=== PATIENT | male | born 1955 | race Caucasian/White ===

== ENCOUNTER 2021-10-16 14:01 | Inpatient (IN) | payer MEDICARE, MEDICAID, OTHER ==
[~2021-10-16] VITALS: Ht 175.3 cm; Wt 81.6 kg
[2021-10-16 16:02] LABS: CHLORIDE 93 mEq/L (98-107)
[2021-10-16 16:03] LABS: BASOPHILS % 0.2 % (0.0-2.0); HEMATOCRIT. 43.3 % (42.0-52.0); HEMOGLOBIN. 14.5 g/dL (14.0-18.0); LYMPHOCYTES % 9.5 % (20.0-50.0); MEAN CORPUSCULAR HEMOGLOBIN 32.6 pg (28.0-32.0); MEAN CORPUSCULAR VOLUME 97.3 fL (80.0-94.0); MEAN PLATELET VOLUME 9.6 fl (7.4-10.4); MONOCYTES % 8.1 % (2.0-8.0); NEUTROPHILS % 82.2 % (40.0-76.0); PLATELET 200 x1000/uL (130-400); RED BLOOD CELL COUNT 4.45 mill/uL (4.7-6.1); RED CELL DISTRIBUTION WIDTH 17.2 % (11.6-14.6)
[2021-10-16] MEDS ORDERED: FUROSEMIDE 40MG/4ML VIAL IV ONE (17:00)
[2021-10-16] MEDS ORDERED: ASPIRIN 81MG TABLET PO ONE (17:00)
[2021-10-17] MEDS ORDERED: FUROSEMIDE 40MG/4ML VIAL IV NR (01:30)
[2021-10-17] MEDS ORDERED: ASPIRIN 81MG TABLET PO NR (01:45)
[2021-10-17 02:52] VITALS: BP 153/102
[2021-10-17 08:00] VITALS: BP 150/101
[2021-10-17] MEDS ORDERED: FUROSEMIDE 40MG/4ML VIAL IVP SCH ×2 (09:00→17:00)
[2021-10-17] MEDS: CARVEDILOL 6.25 MG TABLET PO SCH ×2 (09:17→21:15)
[2021-10-17] MEDS: ENOXAPARIN 40MG/0.4ML SYR SUBCUT SCH (09:17)
[2021-10-17] MEDS: LISINOPRIL 20MG TABLET PO SCH (09:17)
[2021-10-17 12:00] VITALS: BP 96/66
[2021-10-17 16:00] VITALS: BP 118/80
[2021-10-17] MEDS: FUROSEMIDE 40MG/4ML VIAL IVP SCH (17:26)
[2021-10-17 17:51] LABS: *AMPHETAMINES SCREEN URINE NEGATIVE (NEGATIVE)
[2021-10-17 17:52] LABS: *BARBITURATES SCREEN URINE NEGATIVE (NEGATIVE); *BENZODIAZEPINES SCREEN URINE NEGATIVE (NEGATIVE); *COCAINE SCREEN URINE NEGATIVE (NEGATIVE); METHADONE URINE SCREEN NEGATIVE (NEGATIVE); OPIATES URINE SCREEN NEGATIVE (NEGATIVE); PHENCYCLIDINE URINE SCREEN NEGATIVE (NEGATIVE)
[2021-10-17 17:53] LABS: CANNABINOID URINE SCREEN NEGATIVE (NEGATIVE)
[2021-10-17 20:00] VITALS: BP 134/88
[2021-10-18] VITALS: BP 108/69
[2021-10-18 04:00] VITALS: BP 110/62
[2021-10-18] MEDS: FUROSEMIDE 40MG/4ML VIAL IVP SCH ×2 (06:55→18:34)
[2021-10-18 07:28] LABS: BASOPHILS % 0.6 % (0.0-2.0); EOSINOPHILS % 0.3 % (0.0-5.0); HEMATOCRIT. 39.3 % (42.0-52.0); HEMOGLOBIN. 13.1 g/dL (14.0-18.0); LYMPHOCYTES % 7.8 % (20.0-50.0); MEAN CORPUSCULAR HEMOGLOBIN 32.1 pg (28.0-32.0); MEAN CORPUSCULAR VOLUME 96.2 fL (80.0-94.0); MEAN PLATELET VOLUME 9.9 fl (7.4-10.4); MONOCYTES % 7.1 % (2.0-8.0); NEUTROPHILS % 84.2 % (40.0-76.0); PLATELET 166 x1000/uL (130-400); RED BLOOD CELL COUNT 4.09 mill/uL (4.7-6.1); RED CELL DISTRIBUTION WIDTH 17.5 % (11.6-14.6)
[2021-10-18 08:00] VITALS: BP 106/67
[2021-10-18] MEDS: LISINOPRIL 20MG TABLET PO SCH (08:42)
[2021-10-18] MEDS: ENOXAPARIN 40MG/0.4ML SYR SUBCUT SCH (08:42)
[2021-10-18] MEDS: CARVEDILOL 6.25 MG TABLET PO SCH ×2 (08:42→21:57)
[2021-10-18] MEDS ORDERED: POTASSIUM CHLORIDE INJ 40 MEQ in DEXT 5% WATER 500 ML IV ONE (10:00)
[2021-10-18] MEDS ORDERED: POTASSIUM CHLORIDE 20MEQ TABLET SR PO NR (10:30)
[2021-10-18 12:00] VITALS: BP 113/58
[2021-10-18] MEDS: KCL 20MEQ/100ML PREMIX 100 ML IV SCH ×2 (12:27→15:59)
[2021-10-18] MEDS ORDERED: SPIRONOLACTONE 25MG TABLET PO SCH (13:45)
[2021-10-18 16:00] VITALS: BP 99/72
== END 2021-10-19 06:45 | disposition left against medical advice (07) | DRG 280 ==
LOC: ER 14:20 → 7EST 17:44 → EDBEDREQTM 18:44 → EDBEDREQ 18:44 → ENRESERV 10-17 00:11 → 5WST 10-18 15:58
PROVIDERS: ADMIT Internal Medicine; ATTEND Internal Medicine
DX: I21.4 Non-ST elevation (NSTEMI) myocardial infarction (principal); I50.23 Acute on chronic systolic (congestive) heart failure; N17.0 Acute kidney failure with tubular necrosis; N17.9 Acute kidney failure, unspecified; E44.0 Moderate protein-calorie malnutrition; E87.1 Hypo-osmolality and hyponatremia; I11.0 Hypertensive heart disease with heart failure; I16.0 Hypertensive urgency; E78.00 Pure hypercholesterolemia, unspecified; E78.5 Hyperlipidemia, unspecified; F17.210 Nicotine dependence, cigarettes, uncomplicated; Z20.822 Contact with and (suspected) exposure to COVID-19; R74.01 Elevation of levels of liver transaminase levels; E87.8 Other disorders of electrolyte and fluid balance, not elsewhere classified; Z91.14 Patient's other noncompliance with medication regimen; I25.2 Old myocardial infarction; Z68.26 Body mass index [BMI] 26.0-26.9, adult
CPT/HCPCS: 36415; 71045; 76700; 80048; 80053; 80305; 83880; 84484; 85025; 87426; 93005; 93306; 99285; J1650; J1940; J3480; J7040

== ENCOUNTER 2021-12-11 11:51 | Inpatient (IN) | payer MEDICARE, OTHER ==
[~2021-12-11] VITALS: Ht 170.2 cm; Wt 64.9 kg
[2021-12-11 13:05] LABS: BASOPHILS % 0.2 % (0.0-2.0); HEMATOCRIT. 42.7 % (42.0-52.0); HEMOGLOBIN. 14.8 g/dL (14.0-18.0); LYMPHOCYTES % 8.2 % (20.0-50.0); MEAN CORPUSCULAR HEMOGLOBIN 33.4 pg (28.0-32.0); MEAN CORPUSCULAR VOLUME 96.2 fL (80.0-94.0); MEAN PLATELET VOLUME 9.7 fl (7.4-10.4); MONOCYTES % 7.7 % (2.0-8.0); NEUTROPHILS % 83.9 % (40.0-76.0); PLATELET 184 x1000/uL (130-400); RED BLOOD CELL COUNT 4.44 mill/uL (4.7-6.1); RED CELL DISTRIBUTION WIDTH 17.5 % (11.6-14.6)
[2021-12-11] MEDS ORDERED: FUROSEMIDE 40MG/4ML VIAL IVP ONE (14:15)
[2021-12-11 21:40] VITALS: BP 145/102
[2021-12-11] MEDS: SODIUM CHLORIDE 0.9% INJ 3ML FLUSH IVF SCH (22:00)
[2021-12-11] MEDS ORDERED: MAGNESIUM/ALUMINUM HYDROXIDE/SIMETHICONE 30ML UDC PO PRN (22:00)
[2021-12-11] MEDS ORDERED: DIPHENHYDRAMINE 50MG/ML VIAL IV PRN (22:00)
[2021-12-11] MEDS ORDERED: ZOLPIDEM TARTRATE 5MG TABLET PO PRN (22:00)
[2021-12-11] MEDS ORDERED: HYDRALAZINE 20MG/ML VIAL IV PRN (22:00)
[2021-12-11] MEDS ORDERED: GUAIFENESIN 200MG/10ML SUGAR FREE UDC PO PRN (22:00)
[2021-12-11] MEDS ORDERED: ONDANSETRON HCL 4MG/2ML INJ IV PRN (22:00)
[2021-12-11] MEDS ORDERED: ACETAMINOPHEN 325MG TABLET PO PRN ×2 (22:00)
[2021-12-11] MEDS ORDERED: CLONIDINE 0.1MG TABLET PO PRN (22:00)
[2021-12-12] VITALS: BP 137/96
[2021-12-12 04:00] VITALS: BP 132/99
[2021-12-12 06:36] LABS: BASOPHILS % 0.3 % (0.0-2.0); HEMATOCRIT. 45.2 % (42.0-52.0); HEMOGLOBIN. 15.3 g/dL (14.0-18.0); LYMPHOCYTES % 9.3 % (20.0-50.0); MEAN CORPUSCULAR HEMOGLOBIN 32.7 pg (28.0-32.0); MEAN CORPUSCULAR VOLUME 96.8 fL (80.0-94.0); MEAN PLATELET VOLUME 9.9 fl (7.4-10.4); MONOCYTES % 8.9 % (2.0-8.0); NEUTROPHILS % 81.5 % (40.0-76.0); PLATELET 182 x1000/uL (130-400); RED BLOOD CELL COUNT 4.67 mill/uL (4.7-6.1); RED CELL DISTRIBUTION WIDTH 17.7 % (11.6-14.6)
[2021-12-12 06:43] LABS: PHOSPHORUS 3.6 mg/dL (2.5-4.9)
[2021-12-12] MEDS: SODIUM CHLORIDE 0.9% INJ 3ML FLUSH IVF SCH ×3 (06:48→21:07)
[2021-12-12 08:00] VITALS: BP 138/78
[2021-12-12] MEDS: FUROSEMIDE 40MG/4ML VIAL IVP SCH ×2 (10:56→21:07)
[2021-12-12] MEDS: SPIRONOLACTONE 25MG TABLET PO SCH (10:56)
[2021-12-12] MEDS: LISINOPRIL 10MG TABLET PO SCH ×2 (10:57→21:07)
[2021-12-12] MEDS: CARVEDILOL 6.25 MG TABLET PO SCH ×2 (10:57→21:07)
[2021-12-12] MEDS: ENOXAPARIN 40MG/0.4ML SYR SUBCUT SCH (10:58)
[2021-12-12 12:00] VITALS: BP 129/79
[2021-12-12 16:00] VITALS: BP 132/75
[2021-12-12] MEDS ORDERED: POTASSIUM CHLORIDE 10MEQ TABLET SR PO NR (16:30)
[2021-12-12] MEDS ORDERED: FUROSEMIDE 40MG/4ML VIAL IVP NR (16:30)
[2021-12-12 20:00] VITALS: BP 132/86
[2021-12-13] VITALS (7 sets, daily range): BP systolic 97–125; BP diastolic 65–75
[2021-12-13] MEDS: SODIUM CHLORIDE 0.9% INJ 3ML FLUSH IVF SCH ×3 (05:06→21:33)
[2021-12-13] MEDS: SPIRONOLACTONE 25MG TABLET PO SCH (09:00)
[2021-12-13] MEDS: LISINOPRIL 10MG TABLET PO SCH ×2 (09:00→21:00)
[2021-12-13] MEDS: CARVEDILOL 6.25 MG TABLET PO SCH ×2 (09:00→21:00)
[2021-12-13] MEDS: FUROSEMIDE 40MG/4ML VIAL IVP SCH ×2 (09:34→21:00)
[2021-12-13] MEDS: ENOXAPARIN 40MG/0.4ML SYR SUBCUT SCH (09:35)
[2021-12-13] MEDS ORDERED: POTASSIUM CHLORIDE 20MEQ TABLET SR PO NR ×2 (10:57→22:00)
[2021-12-13] MEDS ORDERED: MAGNESIUM 1 G PREMIX 100 ML IV NR (12:30)
[2021-12-14] VITALS: BP 112/70
[2021-12-14 04:00] VITALS: BP 103/63
[2021-12-14] MEDS: SODIUM CHLORIDE 0.9% INJ 3ML FLUSH IVF SCH (05:25)
[2021-12-14 08:00] LABS: PHOSPHORUS 2.6 mg/dL (2.5-4.9)
[2021-12-14 08:15] VITALS: BP 106/72
[2021-12-14] MEDS: SPIRONOLACTONE 25MG TABLET PO SCH (08:36)
[2021-12-14] MEDS: FUROSEMIDE 40MG/4ML VIAL IVP SCH ×2 (08:36→08:42)
[2021-12-14] MEDS: CARVEDILOL 6.25 MG TABLET PO SCH (08:36)
[2021-12-14] MEDS: ENOXAPARIN 40MG/0.4ML SYR SUBCUT SCH (08:37)
[2021-12-14] MEDS: LISINOPRIL 10MG TABLET PO SCH (08:37)
[2021-12-14] MEDS ORDERED: POTASSIUM CHLORIDE 20MEQ TABLET SR PO NR (10:15)
== END 2021-12-14 10:50 | disposition home or self-care (01) | DRG 291 ==
LOC: ER 11:51 → 6WST 16:33 → EDBEDREQTM 16:37 → EDBEDREQ 16:38 → ENRESERV 19:47
PROVIDERS: ADMIT Internal Medicine; ATTEND Internal Medicine
DX: I13.0 Hypertensive heart and chronic kidney disease with heart failure and stage 1 through stage 4 chronic kidney disease, or unspecified chronic kidney disease (principal); I50.23 Acute on chronic systolic (congestive) heart failure; I27.20 Pulmonary hypertension, unspecified; Z20.822 Contact with and (suspected) exposure to COVID-19; F17.200 Nicotine dependence, unspecified, uncomplicated; N18.9 Chronic kidney disease, unspecified; E78.00 Pure hypercholesterolemia, unspecified
CPT/HCPCS: 36415; 71045; 80048; 83735; 83880; 84100; 84484; 85025; 87426; 99285; J1650; J1940; J3475